=== PATIENT | male | born 1935 | race Caucasian/White ===

== ENCOUNTER 2022-09-27 07:12 | Outpatient (CLI) | payer MEDICARE | END 2022-09-27 07:13 | disposition home or self-care (01) | LOC: CSHCP 07:12 | PROVIDERS: ATTEND Internal Medicine Critical Care Medicine | DX: J44.9 Chronic obstructive pulmonary disease, unspecified (principal) | CPT/HCPCS: 94060; 94726; 94729; 94760 ==